=== PATIENT | female | born 1975 ===

== ENCOUNTER 2017-06-12 10:06 | Emergency (ER) | payer OTHER ==
[2017-06-12 10:34] VITALS: BP 131/88
--- NOTE | 2017-06-12 10:53 | UC ---
Complaint Female HPI - History Of Current Complaint Chief Complaint: [facility]CGU Stated Complaint: URINARY COMPLAINT Time Seen by Provider: 06/12/17 10:40 Hx Obtained From: Patient Hx Last Menstrual Period: 06/04/17 Onset/Duration: Sudden Onset, Lasting Hours Timing: Lasting Hours Severity Initially: Mild Severity Currently: Moderate Character: Burning Aggravating Factor(s): Urination - Allergies/Home Medications Allergies/Adverse Reactions: Allergies Allergy/AdvReac Type Severity Reaction Status Date / Time No Known Allergies Allergy Verified 06/12/17 10:21 Home Medications: Home Medications Bupropion XL* [Wellbutrin XL *] 300 mg PO DAILY 06/12/17 [History Confirmed ] Drospirenone-Ethinyl Estradiol [Roseline 3-0.02 mg] 1 tab PO DAILY 06/12/17 [History Confirmed 06/12/17] Levothyroxine TAB* [Synthroid TAB*] 75 mcg PO DAILY 06/12/17 [History Confirmed 06/12/17] Sertraline* [Zoloft*] 50 mg PO DAILY 06/12/17 [History Confirmed 06/12/17] metFORMIN* [Glucophage 500 MG TAB *] 500 mg PO BID 06/12/17 [History Confirmed 06/12/17] PMH/Surg Hx/FS Hx/Imm Hx Previously Healthy: Yes - Surgical History Surgical History: None - Family History Known Family History: Negative: Cardiac Disease, Hypertension - Social History Alcohol Use: None Substance Use Type: None Smoking Status (MU): Never Smoked Tobacco Review of Systems Constitutional: Negative Skin: Negative Eyes: Negative ENT: Negative Respiratory: Negative Cardiovascular: Negative Gastrointestinal: Negative Genitourinary: Dysuria, Frequency Motor: Negative Neurovascular: Negative Musculoskeletal: Negative Neurological: Negative Psychological: Negative All Other Systems Reviewed And Are Negative: Yes Physical Exam Triage Information Reviewed: Yes Appearance: Well-Appearing, Well-Nourished, Pain Distress Vital Signs: Initial Vital Signs Temp 99.7 F 06/12/17 10:16 Pulse 113 06/12/17 10:16 Resp 16 06/12/17 10:16 BP 131/88 06/12/17 10:16 Pulse Ox 99 06/12/17 10:16 Vital Signs Reviewed: Yes Eye Exam: Normal ENT Exam: Normal Neck exam: Normal Respiratory Exam: Normal Respiratory: Positive: Chest non-tender, Lungs clear, Normal breath sounds Cardiovascular Exam: Normal Cardiovascular: Positive: No Murmur, Pulses Normal Abdomen Description: Positive: Nontender, No Organomegaly, Soft, CVA Tenderness (R) - neg, CVA Tenderness (L) - neg Bowel Sounds: Positive: Present Musculoskeletal Exam: Normal Neurological Exam: Normal Psychological Exam: Normal Skin Exam: Normal Complaint Female Dx - Course Course Of Treatment: hx obtained, exam performed ,meds reviewed, treated for UTI - Differential Dx/Diagnosis Differential Diagnosis/HQI/PQRI: Sexually Transmitted Disease, Ureteral Stone, Urinary Tract Infection Provider Diagnoses: UTI Discharge - Discharge Plan Condition: Stable Disposition: HOME Prescriptions: Cephalexin CAP* [Keflex CAP*] 500 mg PO BID #14 cap Patient Education Materials: Urinary Tract Infection in Women (ED) Referrals: Non Staff,Doctor [Primary Care Provider] - Additional Instructions: 1. Increase fluid intake 2. COntinue with Cranberry pills 3. Take the antibiotic as prescribed.
--- NOTE | 2017-06-14 15:10 | UC ---
Progress - Progress Note Progress Note: urine cx is neg. can d/c keflex and f/u with pcp
== END 2017-06-12 11:02 | disposition home or self-care (01) ==
LOC: UCCORT 10:06
DX: N39.0 Urinary tract infection, site not specified (principal)
CPT/HCPCS: 81003; 87086; 99202; G0463